=== PATIENT | female | born 1940 | race Caucasian/White ===

== ENCOUNTER 2022-12-10 08:04 | Outpatient (CLI) | payer OTHER, SELFPAY ==
--- NOTE | ~2022-12-10 | CT_ITS ---
EXAMINATION: CT chest abdomen pelvis w con DATE: 12/10/2022 09:27 CDT INDICATION: Dysphagia TECHNIQUE: Computed tomography (CT) of the chest, abdomen, and pelvis was performed with 100 cc Omnip aque 350 intravenous contrast. The dose-length product was 1058.27 mGy-cm. COMPARISON: CT dated 06/22/2014 FINDINGS: CHEST CT: Large hiatal hernia with gastric volvulus. No endobronchial lesions. There is dependent atelectasis. No focal airspace consolidation. Heart size normal. There is atherosclerosis of the aorta without ane urysm or dissection. No large central pulmonary embolism. There is mediastinal lymphadenopathy, likel y reactive. There is evidence for chronic granulomatous disease. There are small left upper lobe nodu les measuring 3 mm or less ABDOMEN/PELVIS CT: Status post cholecystectomy. The liver, spleen, pancreas, adrenal glands are unremarkable. There are nonobstructing bilateral renal stones. Colonic diverticulosis without evidence for diverticulitis. No nobstructive bowel gas pattern. Moderate colonic fecal loading. No significant vascular abnormality. No lymphadenopathy. IMPRESSION: 1. Large hiatal hernia with gastric volvulus. No obstruction. 2: Nonobstructing bilateral nephrolithiasis. 3: Left upper lobe nodules measuring 3 mm or less, likely benign. 4: Mediastinal lymphadenopathy, likely reactive.. Reviewed, dictated and finalized at location .
[2022-12-10 09:05] LABS: Estimated Glomerular Filt Rate 60
== END 2022-12-10 08:05 | disposition home or self-care (01) ==
PROVIDERS: PCP Family Medicine; Visit Provider Surgery
DX: R13.10 Dysphagia, unspecified (principal); K21.9 Gastro-esophageal reflux disease without esophagitis; N20.0 Calculus of kidney; R91.8 Other nonspecific abnormal finding of lung field
CPT/HCPCS: 71260; 74177; Q9967

== ENCOUNTER 2023-02-08 11:42 | Emergency (ER) | payer OTHER, SELFPAY ==
[2023-02-08] VITALS (17 sets, daily range): BP systolic 133–178; BP diastolic 62–87; PULSE 60–71; RESP 13–23; TEMP 36.7; O2SAT 94–96
--- NOTE | ~2023-02-08 | XR_ITS ---
EXAMINATION: XR chest 1V portable DATE: 02/08/2023 12:19 INDICATION: Weakness. Low blood pressure. TECHNIQUE: A single frontal view of the chest was obtained. COMPARISON: Chest 2 views 10/15/2015, chest CT 12/10/2022 FINDINGS: There are airspace opacities at left lung base. There is a large hiatal hernia. No pleural effusion or pneumothorax. There is prominent extrapleural fat in left lateral costophrenic angle. The heart size is normal. IMPRESSION: 1. Airspace opacities at left lung base, consistent with atelectasis versus pneumonia. 2. Large hiatal hernia. Reviewed, dictated and finalized at location A. [employer] IMPRESSION: 1. Airspace opacities at left lung base, consistent with atelectasis versus pne umonia. 2. Large hiatal hernia.
--- NOTE | 2023-02-08 12:21 | ED.GENADULT ---
HPI - General Adult General Chief complaint: Shortness of Breath/Dyspnea Stated complaint: SOB Time Seen by Provider: 02/08/23 12:06 History of Present Illness HPI narrative: 82-year-old female presenting to the emergency department for evaluation of persistent nausea vomiting and generalized weakness. Patient states that symptoms started approximate 1 week ago and she was seen at [facility]. Patient had negative COVID and strep at that time. Patient states she has had increased generalized weakness and increased cough over the course of the last week. Related Data Home Medications Medication Instructions Recorded Confirmed acetic acid 2 % ear solution 3 drp EACH EAR Q6H PRN 08/11/22 12/31/22 famotidine 20 mg tablet 20 mg PO DAILY 08/11/22 12/31/22 fluticasone propionate 50 1 spray intranasal DAILY 08/11/22 12/31/22 mcg/actuation nasal spray,suspension meclizine 25 mg tablet 25 mg PO BID PRN 08/11/22 12/31/22 meloxicam 15 mg tablet 15 mg PO DAILY 08/11/22 12/31/22 naproxen 500 mg tablet 500 mg PO BID 08/11/22 12/31/22 Allergies Allergy/AdvReac Type Severity Reaction Status Date / Time duloxetine Allergy Mild Unknown Verified 02/08/23 11:57 Sulfa (Sulfonamide Allergy Mild Rash Verified 02/08/23 11:57 Antibiotics) Review of Systems Review of Systems: All systems reviewed & are unremarkable except as noted in HPI and below PMFSH Past Medical History Medical History Abdominal pain Acid reflux Arthritis Chronic headaches Hernia Hernia Hyperlipidemia Kidney stones Ulcers, marginal Surgical History Surgical History Cholecystectomy planned History of total knee arthroplasty left; failed per patient Family History Family History Father Throat cancer Mother Lung cancer Social History Social History Smoking status: Never smoker Alcohol intake: never Substance use: never Substance use type: does not use Living arrangements: alone Additional living arrangements comments: Occupation/Education: retired Gender identity (if verbalized by the patient): Female Agree to blood products: Yes Exam Narrative: APPEARANCE: Well appearing, no pain, no distress, well-nourished. HEAD: normocephalic, atraumatic. EYES: PERRLA/EOMI, conjunctivae clear. NOSE: Normal no drainage THROAT: Pharynx clear, no exudate. NECK: Supple. No adenopathy, no masses. RESPIRATORY: Airway patent, respirations nonlabored. Clear to auscultation bilaterally, no rales, rhonchi, wheezing. CARDIOVASCULAR: Regular rate and rhythm without murmurs rubs or gallops. ABDOMINAL: Soft, nontender, nondistended, normal bowel sounds MUSCULOSKELETAL: Moves all extremities. Strength/ROM intact, No edema, No calf tenderness. NEURO: Alert. Cranial nerves II through XII intact. Grossly intact SKIN: Warm, dry. Normal Color Course Course Emergency Course: 82-year-old female presented ED for evaluation of increased generalized weakness and cough. Patient was ordered repeat COVID testing, chest x-ray and baseline labs. Patient has had no nausea vomiting or diarrhea while in the emergency department. Patient does feel improved with treatment. Patient is afebrile with no leukocytosis and a stable hemoglobin. Patient has CMP is similar to her baseline. UA showed no evidence of influenza RSV or COVID. Chest x-ray did show evidence of pneumonia. Patient was able to ambulate in the ED with a stable pulse ox. Patient denies any complaints while ambulating. Discussed admission versus discharge to home and patient does prefer to be discharged home and does feel improved. Patient was started on Augmentin and azithromycin in the ED and was discharged home on these medications for possible CAP pneumonia. Vital Signs
[2023-02-08 12:47] LABS: Basophils Percent Auto 0.4 % (0.2-1.2); Eosinophils Absolute Auto 0.1 K/mm3 (0-0.3); Eosinophils Percent Auto 1.3 % (0-4.4); Hematocrit 38.2 % (37.0-47.0); Hemoglobin 11.7 g/dL (12.0-15.0); Immature Granulocyte Absolute 0.02 K/mm3 (0.00-0.031); Immature Granulocyte Percent A 0.4 % (0-0.5); Immature Platelet Fraction Pct 6.6 % (0.9-11.2); Lymphocytes Absolute Auto 0.41 K/mm3 (0.9-3.2); Lymphocytes Percent Auto 8.6 % (18.3-44.2); Mean Corpuscular HGB Conc 30.6 g/dl (32-36); Mean Corpuscular Hemoglobin 26.4 pg (26-34); Mean Platelet Volume 10.9 fl (7.4-10.4); Monocytes Absolute Auto 0.4 K/mm3 (0.1-0.6); Monocytes Percent Auto 9.1 % (2.6-8.5); Neutrophils Absolute Auto 3.8 K/mm3 (1.3-6.7); Neutrophils Percent Auto 80.2 % (45.5-73.1); Platelet Count Result 143 k/mm3 (150-375); Red Blood Count 4.44 M/mm3 (4.2-5.4); White Blood Count 4.7 K/mm3 (4.5-10.0)
[2023-02-08 12:56] LABS: Lactic Acid Reflex 0.8 mmol/L (0.7-2.0)
[2023-02-08 12:59] LABS: Alanine Aminotransferase 14 U/L (6-35); Alkaline Phosphatase 102 U/L (38-126); Anion Gap 9 mmol/L (8-16); Aspartate Amino Transferase 19 U/L (14-36); Bilirubin,Total 0.8 mg/dL (0.2-1.3); Blood Urea Nitrogen 10 mg/dL (7-17); Calcium 9.2 mg/dL (8.4-10.2); Carbon Dioxide 26 mmol/L (22-30); Chloride 104 mmol/L (98-107); Estimated CRCL calculation 66 ml/min; Estimated Glomerular Filt Rate > 60; Glucose 131 mg/dL (65-110); Potassium 4.2 mmol/L (3.4-5.0); Sodium 139 mmol/L (137-145)
[2023-02-08 13:22] LABS: Influenza A QL RT-PCR Negative (Negative); Influenza B QL RT-PCR Negative (Negative); RSV RNA, RT-PCR Negative (Negative); SARS-CoV-2 RNA PCR Negative (Negative)
[2023-02-08 13:38] LABS: Appearance Urine Clear (Clear); Bacteria Urine None Seen /hpf; Bilirubin Urine Negative (Negative); Blood Urine Trace (Negative); Color Urine Yellow (Yellow); Glucose Urine UA Negative (Negative); Ketones Urine Negative (Negative); Leukocyte Esterase Ur Negative LEU/UL (Negative); Nitrate Urine Negative (Negative); Non Pathogenic Casts 0-2; Protein Urine Negative (Negative); Specific Grav Ur 1.009 (1.001-1.035); Squamous Epithelial Cell Urine None seen /hpf (Few); WBC Urine 0-5 /hpf
[2023-02-08 14:03] LABS: Add Urine Microscopic? YES
[2023-02-08] MEDS: AMOXICILLIN/CLAVULANATE K 875-125 MG TAB 1 TABLET PO (14:10)
[2023-02-08] MEDS: AZITHROMYCIN 250 MG TABLET 500 MG PO (14:10)
== END 2023-02-08 14:28 | disposition home or self-care (01) ==
PROVIDERS: Emergency Provider Emergency Medicine; PCP Family Medicine
DX: J18.9 Pneumonia, unspecified organism (principal); Z20.822 Contact with and (suspected) exposure to COVID-19; K21.9 Gastro-esophageal reflux disease without esophagitis; E78.5 Hyperlipidemia, unspecified; Z96.652 Presence of left artificial knee joint; Z87.442 Personal history of urinary calculi; Z90.49 Acquired absence of other specified parts of digestive tract
CPT/HCPCS: 36415; 71045; 80053; 81001; 83605; 85025; 85055; 87637; 99284; A9270